=== PATIENT | female | born 1935 | race Caucasian/White ===

== ENCOUNTER → 2017-09-20 | Outpatient (CLI) | payer OTHER | LOC: FIMAGING 14:10 | PROVIDERS: ATTEND Internal Medicine | DX: Z12.31 Encounter for screening mammogram for malignant neoplasm of breast (principal); Z85.3 Personal history of malignant neoplasm of breast | CPT/HCPCS: G0202-52 ==

== ENCOUNTER 2017-12-12 10:39 | Inpatient (IN) | payer OTHER ==
--- NOTE | 2017-12-12 07:10 | PDHPUP ---
History & Physical Update H&P update statement: This history and physical update is based on an assessment of the patient which was completed after admission or registration (within 24 hours), but prior to the surgery/procedure. H&P update: H&P reviewed & patient examined, no change in patient's condition since H&P completed
[~2017-12-12 10:39] MED LIST: ROPIVACAINE 0.2% 80 MG, EPINEPHrine 0.2 MG, KETOROLAC TROMETHAMINE 30 MG in SYRINGE 0 ML IU ONE; TRANEXAMIC ACID 3,000 MG in NS (SYRINGE) 50 ML IRR ONE; TRANEXAMIC ACID 3,000 MG/50 ML BAG IRR ONE
[2017-12-12] MEDS ORDERED: DEXAMETHASONE 4 MG/ML VIAL IVP ONE (10:52)
[2017-12-12] MEDS ORDERED: FAMOTIDINE 20 MG TAB PO ONE (10:52)
[2017-12-12] MEDS ORDERED: ceFAZolin 2 GM/SWFI 2 GM/20 ML SYR IVP ONE (10:52)
--- NOTE | 2017-12-12 12:30 | PDANEPAE ---
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 - Pulmonary History Hx COPD: No Hx Asthma/Reactive Airway Disease: No Hx Recent Upper Respiratory Infection: No Hx Oxygen in Use at Home: No Hx Sleep Apnea: No Sleep Apnea Screening Result - Last Documented: Negative - Neurologic History Hx Cerebrovascular Accident: No Hx Seizures: No Hx Dementia: No Neurologic History Comment: SYNCOPAL EPISODE, MRI, BRAIN SURGERY, BLOOD VESSELS INTERTWINED 1991 - Endocrine History Hx Diabetes: No Endocrine History Comment: HYPOTHYROID - Renal History Hx Renal Disorders: No - Liver History Hx Hepatic Disorders: No - Neurological & Psychiatric Hx Hx Neurological and Psychiatric Disorders: No - Cancer History Hx Cancer: Yes Cancer History Comment: BREAST LUMPECTOMY - Congenital Disorder History Hx Congenital Disorders: No - GI History Hx Gastrointestinal Disorders: No - Other Health History Other Health History: OSTEOARTHRITIS - Chronic Pain History Chronic Pain: Yes (RT KNEE) - Surgical History Prior Surgeries: ROLANDO CATARACT 08/2017. LT TOTAL KNEE 10/2015. R MASTECTOMY 2014. L KNEE CYST EXCISION 2011. BRAIN SURGERY 1991. R LUMPECTOMY 1985. TONSILLECTOMY ANE Review of Systems Review of Systems: - Exercise capacity METS (RN): 6 METS ANE Patient History - Allergies Allergies/Adverse Reactions: No Known Allergies Allergy (Unverified 11/14/17 16:20) - Home Medications Home Medications: Herbals/Supplements -Info Only 1 ea PO DAILY 11/02/15 [Last Taken 11/13/15 15:00 ] Aspirin [Aspirin 81mg (*)] 81 mg PO DAILY 11/14/17 [Last Taken 11/28/17] DULoxetine [Cymbalta] 20 mg PO Q2D@09 11/14/17 [Last Taken 12/11/17 14:00] Denosumab [Prolia] 60 mg SC .[id number] 11/14/17 [Last Taken 11/11/17] - NPO status NPO Since - Liquids (Date): 12/12/17 NPO Since - Liquids (Time): 10:00 NPO Since - Solids (Date): 12/11/17 NPO Since - Solids (Time): 21:00 - Anes Hx Anes Hx: no prior problems - Smoking Hx Smoking Status: Never smoked ANE Labs/Vital Signs - Vital Signs Blood Pressure: 126/69 Heart Rate: 62 Respiratory Rate: 17 O2 Sat (%): 98 Height: 165.1 cm Weight: 54.431 kg ANE Physical Exam - Airway Neck exam: FROM Mallampati Score: Class 1 Mouth exam: normal dental/mouth exam - Pulmonary Pulmonary: no respiratory distress, no rales or rhonchi, clear to auscultation - Cardiovascular Cardiovascular: regular rate and rhythym - ASA Status ASA Status: II ANE Anesthesia Plan Anesthesia Plan: spinal Regional Anesthesia: adductor canal FNB
[2017-12-12] MEDS ORDERED: PROPOFOL/EMULSION 500 MG/50 ML BOTTLE IV ONE (12:35)
[2017-12-12] MEDS ORDERED: DEXAMETHASONE 4 MG/ML VIAL ONE (13:01)
[2017-12-12] MEDS ORDERED: BISACODYL 10 MG SUPP PR PRN (13:06)
[2017-12-12] MEDS ORDERED: MAGNESIUM HYDROXIDE 30 ML UDCUP PO PRN (13:06)
[2017-12-12] MEDS ORDERED: TEMAZEPAM 15 MG CAP PO PRN (13:06)
[2017-12-12] MEDS ORDERED: ONDANSETRON DISINTEGRATING 4 MG TAB PO PRN (13:06)
[2017-12-12] MEDS ORDERED: PROMETHAZINE HCL 25 MG/ML INJ IVP PRN ×2 (13:06→13:51)
[2017-12-12] MEDS ORDERED: METOCLOPRAMIDE 10 MG/2 ML VIAL IVP PRN (13:06)
[2017-12-12] MEDS ORDERED: ONDANSETRON 4 MG/2 ML VIAL IVP PRN ×2 (13:06→13:51)
[2017-12-12] MEDS ORDERED: diphenhydrAMINE 25 MG CAP PO PRN (13:06)
[2017-12-12] MEDS ORDERED: PROMETHAZINE HCL 25 MG SUPPR PR PRN (13:06)
[2017-12-12] MEDS ORDERED: LACTULOSE 20 GM/30 ML UDCUP PO PRN (13:06)
[2017-12-12] MEDS ORDERED: DIPHENOXYLATE/ATROPINE LOMOTIL 1 TAB PO PRN (13:06)
[2017-12-12] MEDS ORDERED: fentaNYL 100 MCG/2 ML INJ ONE (13:19)
[2017-12-12] MEDS ORDERED: LIDOCAINE 2% JELLY 5 ML TUBE ONE (13:24)
[2017-12-12] MEDS ORDERED: ONDANSETRON 4 MG/2 ML VIAL ONE (13:25)
[2017-12-12] MEDS ORDERED: LR 1,000 ML IV SCH (13:30)
[2017-12-12] MEDS ORDERED: NALOXONE HCL 0.4 MG/ML INJ IVP PRN (13:51)
[2017-12-12] MEDS ORDERED: fentaNYL 100 MCG/2 ML INJ IVP PRN (13:51)
[2017-12-12] MEDS ORDERED: ENALAPRILAT DIHYDRATE 1.25 MG/ML VIAL IVP PRN (13:51)
[2017-12-12] MEDS ORDERED: LR 500 ML IV PRN (13:51)
[2017-12-12] MEDS ORDERED: ceFAZolin 2 GM/DEXTROSE 100 ML IV SCH (14:00)
--- NOTE | 2017-12-12 14:20 | POSTOPPROG ---
Post Op Note Date of Operation: 12/12/17 Surgeon: Abilio Avendaño Insurance Healthcare Representative: Carissa Avendaño PAc Anesthesiologist: Ashia Anesthesia: LMA, Spinal Pre-op Diagnosis: R knee DJD Post-op Diagnosis: same Indication: pain Procedure: R TKA Findings: DJD knee Inf/Abcess present in the surg proc area at time of surgery?: No EBL: 50-100
[2017-12-12] MEDS ORDERED: ceFAZolin 2 GM/SWFI 2 GM/20 ML SYR IVP SCH (14:30)
--- NOTE | 2017-12-12 14:37 | POSTANESTH ---
Post Anesthetic Evaluation Cardiovascular Status: Normal, Stable, Similar to Pre-Op Cond Respiratory Status: Normal, Stable, Similar to Pre-op Cond. Level of Consciousness/Mental Status: Can Participate in Eval, Mildly Sleepy, Arousable Pain Control: Adequate, Prn Tx Ordered Nausea/Vomiting Control: Adequate, Prn Tx Ordered Complications Possibly Related to Anesthesia: None Noted (Adductor canal nerve block performed in PACU.)
[2017-12-12] MEDS: SENNOSIDES/DOCUSATE SODIUM TAB PO SCH (20:54)
[2017-12-12] MEDS: FAMOTIDINE 20 MG TAB PO SCH (20:54)
[2017-12-12] MEDS: ASPIRIN 81 MG CHEWABLE TAB PO SCH (20:54)
[2017-12-12] MEDS: ceFAZolin 2 GM/SWFI 2 GM/20 ML SYR IVP SCH (20:57)
--- NOTE | 2017-12-13 00:42 | GOP ---
[f rep st] OPERATIVE REPORT DATE OF OPERATION: 12/12/2017 SURGEON: Everardo Avendaño MD IN HOME SALES CONSULTANT: Carissa Avendaño PA-C ANESTHESIA: Spinal. PREOPERATIVE DIAGNOSIS: Right knee osteoarthritis. POSTOPERATIVE DIAGNOSIS: Right knee osteoarthritis. PROCEDURE PERFORMED: Right total knee arthroplasty. FINDINGS: ESTIMATED BLOOD LOSS: 30 cc. INDICATIONS: This is an 82-year-old female with severe and progressive pain and deformity of the rig ht knee unresponsive to conservative care. Risks and benefits of the surgical intervention were expl ained in detail. DESCRIPTION OF PROCEDURE: The patient was brought to the operative room and placed on the table in t he supine position. Spinal anesthesia was induced without difficulty. A pneumatic tourniquet was ap plied about the right proximal thigh, and the leg was prepped and draped in a sterile fashion. The l eg bae was applied. After exsanguination by elevation the tourniquet was inflated to 250 mm of me rcury. Incision was made anterior medial from the tibial tuberosity to a point 2 cm proximal to the superior pole of the patella. Medial parapatellar arthrotomy was carried out from the superior pole of the p atella and posteriorly in line with the fibers of the Type II VMO. The medial collateral ligament wa s elevated and the infrapatellar fat pad was resected. The patella was everted and the articular surface was excised. A 32 mm patellar button was placed. T he distal femoral guide hole was drilled and the 6-degree alignment zaida was placed. A 10 mm distal f emoral cut was made without difficulty. Attention was turned to the tibia and a standard 6 mm cut based on the medial tibial condyle was perf ormed. The tibial articular surface was excised without difficulty. Attention was turned back to the femur and a size 5 Triathlon femoral cutting block was positioned. Anterior, posterior, and chamfer cuts were made, followed by the intercondylar box cut. The knee was extended and the remnants of the medial and lateral meniscus were excised. The posterio r capsule was injected with ropivacaine, epinephrine and Toradol. A size 5 Triathlon Tritanium tibia l tray was positioned. Trial reduction was then carried out. There was excellent range of motion, a lignment, and stability using the 5 x 9 mm polyethylene. All trials were then removed. The joint was thoroughly irrigated and carefully dried. Two packages of cement and 2 grams of vancomycin were mixed in the vacuum mixer and placed on the fixation surface s of all surfaces of the components. The components were implanted and all excess cement was thoroug hly removed. The permanent 5 x 9 mm polyethylene x3 was placed without difficulty. The tourniquet was deflated and all bleeders were coagulated. The wound was thoroughly irrigated and closed using interrupted sutures of 2-0 Vicryl for the joint capsule. The subcu was closed with 3-0 Vicryl and the skin with 4-0 Monocryl. Dermabond and Steri-Strips were applied followed by a compre ssive dressing. The patient was then moved from the operating room to the recovery room in good cond ition, having tolerated the procedure well. PATHOLOGY: Severe, lateral patellofemoral osteoarthritis. /[id number]/MODL
[2017-12-13] MEDS: LEVOTHYROXINE 50 MCG TAB PO SCH (05:31)
[2017-12-13] MEDS: ceFAZolin 2 GM/SWFI 2 GM/20 ML SYR IVP SCH (05:32)
[2017-12-13] MEDS: FAMOTIDINE 20 MG TAB PO SCH ×2 (09:06→20:42)
[2017-12-13] MEDS: ANASTROZOLE 1 MG TAB PO SCH (09:06)
[2017-12-13] MEDS: ASPIRIN 81 MG CHEWABLE TAB PO SCH ×2 (09:06→20:42)
[2017-12-13] MEDS: SENNOSIDES/DOCUSATE SODIUM TAB PO SCH ×2 (09:07→20:42)
--- NOTE | 2017-12-13 15:58 | SOAPPROG ---
SOAP Progress Note Assessment/Plan: Assessment: Makenna is doing well POD 1 s/p R TKA pain is well controlled on oral pain meds Anemia: level expected initially postop VTE ppx: recommend ASA 81 mg BID foot drop: impaired dorsiflexion, should improve with more time from surgery. most likely due to periarticular injection. continue to monitor closely and ambulate carefully d/c planning: d/c to home tomorrow pending improvement in foot drop and patient' s comfort level Plan: 12/13/17 15:56 Subjective: Makenna is doing well today, denies SOB, chest pain and N/V. Objective: Vital Signs Temp Pulse Resp BP Pulse Ox 36.8 C 68 16 99/50 L 95 12/13/17 15:38 12/13/17 15:38 12/13/17 15:38 12/13/17 15:38 12/13/17 15:38 Laboratory Results 12/13/17 05:01 12/13/17 05:01 12/12/17 12/13/17 12/14/17 05:59 05:59 05:59 Intake Total 2177 650 Output Total 1650 900 Balance 519 -250 RLE: incision dressing is clean and dry, NVI, +pf/df ICD10 Worksheet Patient Problems: Problems Problem Status Onset S/P total knee arthroplasty Acute
[2017-12-13] MEDS: HYDROCODONE/APAP 5/325 TAB PO PRN ×2 (17:34→20:42)
[2017-12-13] MEDS: CYCLOBENZAPRINE 10 MG TAB PO PRN (22:03)
[2017-12-14] MEDS: HYDROCODONE/APAP 5/325 TAB PO PRN (01:10)
[2017-12-14] MEDS: LEVOTHYROXINE 50 MCG TAB PO SCH (06:04)
[2017-12-14] MEDS: SENNOSIDES/DOCUSATE SODIUM TAB PO SCH ×2 (09:42→20:56)
[2017-12-14] MEDS: FAMOTIDINE 20 MG TAB PO SCH ×2 (09:42→20:56)
[2017-12-14] MEDS: DULoxetine 20 MG CAP PO SCH (09:42)
[2017-12-14] MEDS: ASPIRIN 81 MG CHEWABLE TAB PO SCH ×2 (09:43→20:56)
[2017-12-14] MEDS: ANASTROZOLE 1 MG TAB PO SCH (09:43)
--- NOTE | 2017-12-14 12:59 | CPEKG ---
Heart Rate: 63 RR Interval: 952 P-R Interval: 208 QRSD Interval: 110 QT Interval: 412 QTC Interval: 422 P [place]: 76 QRS [place]: -62 T Wave [place]: 69 EKG Severity - ABNORMAL ECG - EKG Impression: SINUS RHYTHM EKG Impression: LEFT ANTERIOR FASCICULAR BLOCK Electronically Signed By: Arthur Sneed 14-Dec-2017 17:03:05
[2017-12-14] MEDS: CYCLOBENZAPRINE 10 MG TAB PO PRN (14:56)
[2017-12-14] MEDS ORDERED: ACETAMINOPHEN 325 MG TAB PO PRN (15:11)
--- NOTE | 2017-12-14 15:20 | SOAPPROG ---
SOAP Progress Note Assessment/Plan: Assessment: Makenna is doing well POD 2 s/p R TKA 1) pain: patient states she had severe pain last evening, received IV morphine and Bellevue within minutes of eachother. Patient has not had another narcotic pain med since early this morning. Patient states nausea to oxycodone, so Bellevue was ordered. Patient states drowsiness and has slept most of the day. Ordered tramadol and tylenol as additional options as patient is reluctant to take Bellevue due to mental side effects. 2) Anemia: level expected initially postop 3) VTE ppx: recommend ASA 81 mg BID 4) foot drop: resolved 5) d/c planning: patient has had a more difficult time recovering than anticipated. Concern about patient's ability to participate in PT. Placed case management order. Believe we should consider SNF for patient. 6): lightheadedness: patient had episode of lightheadedness, diaphoresis and nurses and district administrative assistant describe episode of difficulty to arouse while patient was trying to go to the bathroom. Recommend resuming IV fluids, rest, encouraged patient to work with PT as tolerated. STAT team was called, EKG obtained. Patient was resting comfortably in bed before I left. Plan: 12/13/17 15:56 12/14/17 15:12 Subjective: Makenna is resting comfortably in bed, describes drowsiness after receiving restoril, Bellevue and IV morphine last evening. Has not worked with PT. Patient states she had pain while working with OT. Patient is worried about taking Bellevue due to sedating side effects. Objective: Vital Signs Temp Pulse Resp BP Pulse Ox 36.9 C 80 14 102/64 96 12/14/17 08:00 12/14/17 09:40 12/14/17 08:00 12/14/17 09:40 12/14/17 09:40 Laboratory Results 12/14/17 04:50 12/13/17 05:01 12/13/17 12/14/17 12/15/17 05:59 05:59 05:59 Intake Total 2174 1300 Output Total 1655 900 300 Balance 519 400 -300 RLE: incision dressing is clean and dry, ecchymosis as expected POD 1, swelling and effusion as expected POD 1. + plantar flexion ICD10 Worksheet Patient Problems: Problems Problem Status Onset S/P total knee arthroplasty Acute
--- NOTE | 2017-12-14 15:39 | ASMTCMCOM ---
CM Note CM Note Notes: Pt post op day 2 right TKA, has been limited working w therapies by pain and lightheadedness. CM order today to assess for SNF placement. Spoke w pt and Leroy about SNF, pt verbalizes understanding she may need SNF and is agreeable. Provided [facility] SNF list, pt and will talk to friends/family and let CM know choice(s) tomorrow. CM to follow. Date Signed: 12/14/2017 03:39 PM Electronically Signed By:FABIOLA Norris
[2017-12-14] MEDS: traMADol 50 MG TAB PO PRN (16:13)
[2017-12-15] MEDS: LEVOTHYROXINE 50 MCG TAB PO SCH (05:00)
[2017-12-15] MEDS: traMADol 50 MG TAB PO PRN ×2 (05:00→16:06)
[2017-12-15] MEDS: ANASTROZOLE 1 MG TAB PO SCH (09:04)
[2017-12-15] MEDS: SENNOSIDES/DOCUSATE SODIUM TAB PO SCH ×2 (09:04→22:21)
[2017-12-15] MEDS: FAMOTIDINE 20 MG TAB PO SCH ×2 (09:04→22:22)
[2017-12-15] MEDS: ASPIRIN 81 MG CHEWABLE TAB PO SCH ×2 (09:04→22:22)
[2017-12-15] MEDS: HYDROCODONE/APAP 5/325 TAB PO PRN (09:07)
[2017-12-15] MEDS: POLYETHYLENE GLYCOL 3350 17 GM PKT PO PRN (09:08)
[2017-12-15 10:53] LABS: PLATELET COUNT 214 10^3/uL (150-400)
--- NOTE | 2017-12-15 11:12 | GCON ---
[f rep st] CONSULTATION INTERNAL MEDICINE CONSULTATION DATE OF CONSULTATION: 12/15/2017 REASON FOR CONSULTATION: Medical opinion regarding syncopal event. HISTORY: The patient is an 82-year-old female who is postoperative day #3 status post right total kn ee arthroplasty. A stat team was called yesterday as the patient had full loss of consciousness whil e on the toilet. She had a pulse throughout the event, but she did briefly stop breathing. She resp onded well to a deep sternal rub. The patient complains of severe pain all day yesterday. The day prior to that she was doing well, bu t when the Marcaine anesthesia wore off, pain became severe. She got a dose of IV morphine, which pr therese much knocked her out, and she slept most of the day. She has almost no memory of any events fro m yesterday, including her episode of loss of consciousness on the commode. Today, she is doing much better with improved pain control. She denies any chest pain or shortness of breath, and she has be en up already with Physical Therapy this morning. Yesterday afternoon she became hypotensive with an y attempt to get her out of bed, but her orthostatic vital signs this morning were within normal limi ts. PAST MEDICAL HISTORY: 1. Hypothyroidism. 2. Breast cancer, status post mastectomy. 3. Pulmonary hypertension. 4. Ascending aortic dilation. 5. Sciatica. PAST SURGICAL HISTORY: Hysterectomy. MEDICATIONS: Please see computer record for full detailed list. ALLERGIES: No known drug allergies. SOCIAL HISTORY: No smoking. No alcohol. She lives with her . REVIEW OF SYSTEMS: Complete review of systems obtained. Review of systems negative regarding consti tutional, HEENT, GI, pulmonary, vascular, , hematology, skin, musculoskeletal, endocrine, psych exc ept for positives as in HPI. FAMILY HISTORY: Positive for stroke and early coronary artery disease. PHYSICAL EXAMINATION: GENERAL: Well-developed, well-nourished female, in no acute distress. VITAL SIGNS: Temperature is 36.8, pulse 73, blood pressure 109/43, saturating 96% on 1 L. EYE EXAMINATION : Normal conjunctivae. Pupils equal, reactive to light. ENT: Normal ears and nose. Hearing intac t. Normal teeth. Oropharynx moist. NECK: Trachea midline. No thyromegaly. CHEST: Normal respir atory effort. Lungs clear to auscultation bilaterally. CARDIOVASCULAR: Regular rhythm. No murmur. No extremity edema. ABDOMEN: Soft, nontender. No hepatosplenomegaly. SKIN: Warm, dry, intact. No rash. MUSCULOSKELETAL: No cyanosis or clubbing. Strength 5/5 upper and lower extremities. JANINE RO: Cranial nerves intact. Normal sensation to light touch. PSYCHIATRIC: Alert and oriented x3. Normal mood and affect. Normal judgment and insight. Normal memory. LABORATORY DATA: Hematocrit 31.4, that was as of yesterday morning. Sodium 135, potassium 4.1, chlo ride 105, bicarb 25, BUN 10, creatinine 0.5, glucose 99. EKG reviewed by me. My personal interpretation, normal sinus rhythm. No ST or T-wave changes. ASSESSMENT AND PLAN: 1. Syncope. I suspect this was a vagal event due to pain and being on the commode. She does, [facility], have a history of pulmonary hypertension and has not had a recent echocardiogram. Will check an echo. Watch her while she is here on telemetry and check a troponin x1. Orthostatic vital signs rep ortedly were positive yesterday but within normal limits this morning. 2. Right total knee arthroplasty. She is on aspirin for deep vein thrombosis prophylaxis, which mari l be deferred to Dr. Avendaño. 3. Breast cancer, status post mastectomy. Continue Arimidex. 4. Hypocalcemia. I will check an albumin. I suspect her albumin is a little low and the calcium wi ll correct to normal range. 5. Hypothyroidism. She recently had a TSH as an outpatient which was with within normal limits. Thank you very much for this consultation. Hospitalist Medicine will continue to follow benji yao her hospitalization. /[id number]/MODL
--- NOTE | 2017-12-15 11:49 | ASMTCMCOM ---
CM Note CM Note Notes: Chart reviewed for discharge planning purposes. Patient i 82 year old female s/p knee surgery. Therapies recommending SNF rehab. I met with the patient and her and they currently reside at . They would consider [facility] as well. Referrals via allscripts. CM to follow. Date Signed: 12/15/2017 11:49 AM Electronically Signed By:Deanne Moscoso RN
[2017-12-16 00:29] VITALS: TEMP 98.2
[2017-12-16] MEDS: LEVOTHYROXINE 50 MCG TAB PO SCH (05:28)
[2017-12-16] MEDS: traMADol 50 MG TAB PO PRN (05:33)
[2017-12-16 07:42] VITALS: O2SAT 96
[2017-12-16] MEDS: DULoxetine 20 MG CAP PO SCH (08:08)
[2017-12-16] MEDS: SENNOSIDES/DOCUSATE SODIUM TAB PO SCH (08:08)
[2017-12-16] MEDS: ASPIRIN 81 MG CHEWABLE TAB PO SCH (08:08)
[2017-12-16] MEDS: FAMOTIDINE 20 MG TAB PO SCH (08:08)
[2017-12-16] MEDS: ANASTROZOLE 1 MG TAB PO SCH (08:09)
--- NOTE | 2017-12-16 09:02 | HOSPPROG ---
Hospitalist Progress Note Assessment/Plan: * Syncope - suspect vasovagal -ECHO result d/w Dr Burrows - unremarkable - formal read to come -remainder of the work-up unremarkable -medically stable to discharge to SNF today * Post-operative anemia -stable and within expectation of procedure * Right KYLE -DVT prophylaxis and pain control per Dr. Avendaño * Breast cancer -continue Arimidex * Hypocalcemia - corrects for low albumin -no need for replacement Subjective: Feels great. No CP/SOB. Feels ready for rehab. Objective: Vital Signs Temp Pulse Resp BP Pulse Ox 36.8 C 72 20 126/51 H 96 12/16/17 07:42 12/16/17 07:42 12/16/17 07:42 12/16/17 07:42 12/16/17 07:42 Laboratory Results 12/15/17 10:35 12/15/17 04:34 12/15/17 12/16/17 12/17/17 05:59 05:59 05:59 Intake Total 1755 1100 Output Total 950 650 Balance 805 450 d/w Dr. Burrows - ECHO is okay, formal read to come tele reviewed - NSR - Physical Exam Constitutional: no apparent distress, appears nourished, not in pain Cardiovascular: regular rate and rhythym, no murmur, rub, or gallop Respiratory: no respiratory distress, no rales or rhonchi, clear to auscultation Gastrointestinal: normoactive bowel sounds, soft, non-tender abdomen, no palpable masses Skin: no rashes or abrasions, no fluctuance, no induration Neurologic: AAOx3, sensation intact bilaterally Psychiatric: interacting appropriately, not anxious, not encephalopathic, thought process linear ICD10 Worksheet Patient Problems: Problems Problem Status Onset S/P total knee arthroplasty Acute
--- NOTE | 2017-12-16 09:42 | ECHO ---
[email or web address] [address] [address] Main: [phone] Fax: Transthoracic Echocardiogram Name: EDMUND CELIS MR#: [id number] Study Date: 12/15/2017 Study Time: 01:38 PM Date of : 1935 Age: 82 year(s) Height: 165.1 cm (65 in.) Weight: 54.43 kg (120 lb.) BSA: 1.59 m2 Gender: Female Examination: Echo Indication: Cardiac: syncope Image Quality: Contrast: Requested by: Barb Sanchez BP: 103 mmHg/51 mmHg Heart Rate: Rhythm: Indication: Cardiac: syncope Procedure Staff Pelletizer Tender: Daysi Cotton RDCS Reading Physician: Kirill Galvez MD Requesting Provider: Conclusions: Normal global systolic LV function. The ejection fraction is estimated to be 65-70 %. Normal diastolic LV function. The left atrium is mildly dilated. Trivial to mild mitral regurgitation. Trivial aortic valve regurgitation. Mild calcification seen on the NCC of the aortic valve.. Moderate tricuspid regurgitation is present. The pulmonary artery pressure is normal. Borderline dilated ascending aorta.. Measurements: Chambers Valvular Assessment AV/MV Valvular Assessment TV/PV Normal Normal Normal Name Value Range Name Value Range Name Value Range Ao Rylee (MM): 3.3 cm (2.2 cm-3.7 MV E Vmax: 0.62 m/s ( - ) TR Vmax: 2.95 mm/s ( - ) cm) MV A Vmax: 0.56 m/s ( - ) TR PGmax: 35 mmHg ( - ) IVSd (2D): 0.7 cm (0.6 cm-1.1 MV E/A: 1.11 ( - ) syst. PAP: 40 mmHg ( - ) cm) LVDd (2D): 4.2 cm (3.9 cm-5.3 cm) LVDs (2D): 2.0 cm (2.1 cm-4 cm) LVPWd (2D): 0.8 cm ( - ) LVEF (MOD4): 79 % (>=55 %) EF Range: 65-70 % Continued Measurements: Chambers Valvular Assessment AV/MV Valvular Assessment TV/PV Patient: EDMUND CELIS Study Date: 12/15/2017 Page 1 of 2 01:38 PM Name Value Name Value Name Value LADs: 3.2 cm MV E' Septal: 0.08 m/s CVP (est.): 5 mmHg LADs Lon.1 cm MV E/E' Septal: 7.40 LA Area: 20.1 cm2 MV E/E' Lateral: 7.90 Additional Vessels Name Value Ao Ascendin.9 cm Findings: Left Ventricle: Normal size left ventricle. No LV hypertrophy. Normal global systolic LV function. The ejection fraction is estimated to be 65-70 %. No regional wall motion abnormality. Normal diastolic LV function. Right Ventricle: Normal size right ventricle. There is a moderator band noted in the right ventricle. Left Atrium: The left atrium is mildly dilated. Right Atrium: The right atrium is borderline dilated. Mitral Valve: The mitral valve is normal in appearance and function. Trivial to mild mitral regurgitation. Aortic Valve: The aortic valve is tri-leaflet. Trivial aortic valve regurgitation. Mild calcification seen on the NCC of the aortic valve.. Tricuspid Valve: The tricuspid valve is normal in appearance and function. Moderate tricuspid regurgitation is present. The pulmonary artery pressure is normal. Pulmonic Valve: The pulmonic valve is normal in appearance and function. Aorta: Borderline dilated ascending aorta.. The aorta is normal. Pericardium: No pericardial effusion. There is pericardial fat. (No Signature Object) Patient: EDMUND CELIS Study Date: 12/15/2017 Page 2 of 2 01:38 PM [id number]
[2017-12-16] MEDS: POLYETHYLENE GLYCOL 3350 17 GM PKT PO PRN (09:55)
--- NOTE | 2017-12-16 10:32 | PDIAF ---
- Diagnosis Diagnosis: s/p R TKA Code Status: Full Code - Medication Management Discharge Medications: Medications to Continue on Transfer Herbals/Supplements -Info Only 1 ea PO DAILY 11/02/15 [Last Taken 11/13/15 15:00 ] Anastrozole [Arimidex 1 mg (*)] 1 mg PO DAILY #0 tab 11/18/15 [Last Taken 14:00] Levothyroxine [Synthroid 50 mcg (*)] 50 mcg PO DAILY06 #0 tab 11/18/15 [Last Taken 12/12/17 08:00] DULoxetine [Cymbalta] 20 mg PO Q2D@09 11/14/17 [Last Taken 12/11/17 14:00] Denosumab [Prolia] 60 mg SC .[id number] 11/14/17 [Last Taken 11/11/17] Acetaminophen [Tylenol 325mg (*)] 650 mg PO Q6HRS PRN tab 12/16/17 [Last Taken Unknown] Aspirin [Aspirin 81mg (*)] 81 mg PO BID tab.chew 12/16/17 [Last Taken Unknown] Hydrocodone/APAP 5/325 [[place] 5/325 (*)] 1 - 2 tab PO Q6HRS PRN tab 12/16/17 [ Last Taken Unknown] Ondansetron Odt [Zofran Odt 4 mg (*)] 4 mg PO Q4HRS PRN tab 12/16/17 [Last Taken Unknown] Sennosides/Docusate Sodium [Senokot-S] 1 - 2 tab PO BID tab 12/16/17 [Last Taken Unknown] celeCOXIB [Celebrex (*)] 200 mg PO DAILY cap 12/16/17 [Last Taken Unknown] traMADol [Ultram 50 mg (*)] 50 - 100 mg PO Q6HRS PRN tab 12/16/17 [Last Taken Unknown] Discharge Medications: Refer to the Discharge Home Medication list for PRN reason. - Orders Isolation Type: Chemotherapy Isolation Diet Recommendation: no restrictions on diet Diet Texture: Regular Texture Diet Additional: Joint Protocol-Knee Replacement. Follow up with Dr. Puckett office as scheduled. After surgery instructions: Take Aspirin 81mg by mouth twice daily for 4 weeks (helps to prevent blood clots). Wear thigh high ANTONIO hose on both legs during the daytime for 2 weeks (helps to prevent blood clots and decrease swelling in the surgical leg). It is ok to remove ANTONIO hose at night time to give your legs a break. It is common for swelling and bruising to occur in the entire surgical leg even extending to the foot, if concerned call Dr. Wolfe office [phone]. Elevate the surgical leg with the ankle above the hip several times a day. Ideally anytime you are resting throughout the day. Attempt to keep the knee straight while elevating by placing pillows under the ankle instead of the knee to elevate. This may be painful, so please do as much as tolerated. This will help you achieve full knee extension. Use a walker for 7-14 days. Start outpatient physical therapy in 7-10 days. Wear an kyara wrap on the knee for 3-4 days after surgery, then it is no longer needed. Do exercises in the book 2-3 times a day. Ice at least 3-5 times a day for 30 minutes each time, if not more often. We also recommend using the ice machine before falling asleep to help with pain. If you have further questions that are not addressed here, please look at the information packet handed to you at the preop appointment. Most will be answered on the FAQs, after surgery instructions and incision care pages. *IF YOU HAVE A LIFE THREATENING EMERGENCY , CALL 911. FOR NON-LIFE THREATENING ISSUES, PLEASE CALL DR. PUCKETT OFFICE FIRST. A PHYSICIAN IS BLUEPRINT ENGINEER 14/05. Incision/Dressing Care: You may shower tomorrow, you do not have to cover your incision dressing as it should be waterproof. Please do not immerse in water, but water running down it in a shower should be ok. Keep the incision (feliciano) dressing clean and dry. If the incision dressing gets soiled or wet underneath, change dressing to the dressing given to you by the hospital. (feliciano dressing will turn black if drainage occurs). Remove incision dressing (feliciano one) two weeks after surgery. Leave steri strips alone. They will fall off on their own. Do not have anyone else remove the incision dressing prior to the stated recommendation (2 weeks after surgery). If there are incision concerns, contact Dr. Wolfe office. ( Carissa or Dr. Avendaño may remove earlier if concerns arise). If incision site (feliciano dressing) has drainage, call Dr. Wolfe office, . Carissa and Dr. Avendaño may ask you to come into the office for further evaluation - Follow Up Care Current Providers and Referrals: Shaniqua Tucker MD [Primary Care Provider] - Carissa Avendaño PA [Physician Sales Support Advisor] -
--- NOTE | 2017-12-16 11:21 | ASMTCMCOM ---
CM Note CM Note Notes: Met with patient and to review discharge plan of care. No beds available at . They are agreeable to [facility]. Referral sent and patient accepted. Medically cleared for discharge final orders to [facility] via allscripts. Confirmed receipt. Transport at 3 pm. Family and RN informed. RN will call report. CM available should needs arise. Date Signed: 12/16/2017 11:20 AM Electronically Signed By:Deanne Moscoso RN
--- NOTE | 2017-12-16 11:22 | ASMTLACE ---
AMYE Length of stay for Answers: 3 days current admission Acuity / Level of Answers: Yes Care: Did the patient have an inpatient admission? Comorbidities - select Answers: Opioid dependence all that apply / Chronic pain # of Emergency department Answers: 0 visits in the last 6 months Score: 10 Date Signed: 12/16/2017 11:22 AM Electronically Signed By:Deanne Moscoso RN
[2017-12-16 11:28] VITALS: BP 111/44; PULSE 70; RESP 17
--- NOTE | 2017-12-16 15:46 | ASMTCMCOM ---
CM Note CM Note Notes: Facility reports no orders in allscripts. Orders, PT evals and home meds faxed, Confirmed receipt. CM available if needed. Date Signed: 12/16/2017 03:46 PM Electronically Signed By:Deanne Moscoso RN
--- NOTE | 2017-12-16 15:49 | ASDISCHSUM ---
Discharge Information Plan Status:SNF Medically Cleared to Leave:12/15/2017 Discharge Date:12/16/2017 03:01 PM CM D/C Disposition:Long Term Facility ADT D/C Disposition:Long Term Facility Projected Discharge Date:12/17/2017 11:00 AM Transportation at D/C:Wheelchair Van Discharge Delay Reason: Follow-Up Date:12/17/2017 11:00 AM Discharge Slot: Final Diagnosis: Placement Information Referral Type:*Longterm/SNF Referral ID:[id number] Provider Name:Lyudmila Persaud Address 1:[address] Phone Number: Address 2: Fax Number: City:[place] Selection Factors: State:[place] Patient Contact Information Contact Name:SONG Relationship: Address:[address] Work Phone: [facility] Phone: [facility]/Zip Code:[place] [address] Email: Financial Information Financial Class:Medicare Primary Plan Desc:MEDICARE INPATIENT Primary Plan Number:[id number] Secondary Plan Desc:[facility] Secondary Plan Number:[id number] Assessment Information LACE LACE Length of stay for Answers: 3 days current admission Acuity / Level of Answers: Yes Care: Did the patient have an inpatient admission? Comorbidities - select Answers: Opioid dependence all that apply / Chronic pain # of Emergency department Answers: 0 visits in the last 6 months Score: 10 Date Signed: 12/16/2017 11:22 AM Electronically Signed By:Deanne Moscoso RN [facility] CM Progress Note CM Note CM Note Notes: Pt post op day 2 right TKA, has been limited working w therapies by pain and lightheadedness. CM order today to assess for SNF placement. Spoke w pt and Leroy about SNF, pt verbalizes understanding she may need SNF and is agreeable. Provided [facility] list, pt and will talk to friends/family and let CM know choice(s) tomorrow. CM to follow. Date Signed: 12/14/2017 03:39 PM Electronically Signed By:FABIOLA Norris [facility] CM Progress Note CM Note CM Note Notes: Chart reviewed for discharge planning purposes. Patient i 82 year old female s/p knee surgery. Therapies recommending SNF rehab. I met with the patient and her and they currently reside at . They would consider [facility] as well. Referrals via allGlobaliaripts. CM to follow. Date Signed: 12/15/2017 11:49 AM Electronically Signed By:Deanne Moscoso RN [facility] CM Progress Note CM Note CM Note Notes: Met with patient and to review discharge plan of care. No beds available at . They are agreeable to [facility]. Referral sent and patient accepted. Medically cleared for discharge final orders to [facility] via allscripts. Confirmed receipt. Transport at 3 pm. Family and RN informed. RN will call report. CM available should needs arise. Date Signed: 12/16/2017 11:20 AM Electronically Signed By:Deanne Moscoso RN Case Management Discharge Plan Note Case Management Discharge Discharge Order Complete? Answers: Yes Patient to Obtain Answers: Other Notes: [facility] Medications Transportation Arranged Answers: Other Notes: [facility] wheelchair v an EMTALA Complete Answers: No Faxed Final Orders Answers: Yes Agency/Facility Transfer Answers: Yes Report Printed & Faxed to Receiving Agency Family Notified Answers: Yes Date Signed: 12/16/2017 11:25 AM Electronically Signed By:Deanne Moscoso RN [facility] CM Progress Note CM Note CM Note Notes: Facility reports no orders in allscripts. Orders, PT evals and home meds faxed, Confirmed receipt. CM available if needed. Date Signed: 12/16/2017 03:46 PM Electronically Signed By:Deanne Moscoso RN Intervention Information Intervention Type:*Incorrect Registration Date of Service:12/12/2017 04:22 PM Patient Type:Inpatient Staff Member:ABEBA Barros, Leonor Hours: Discipline: Severity: Comment: Intervention Type:*MCGOWAN-Signed Date of Service:12/13/2017 10:26 AM Patient Type:Observation Staff Member:Kalyani Shafer Hours: Discipline: Severity: Comment: Intervention Type:*IM-Signed Date of Service:12/16/2017 11:26 AM Patient Type:Inpatient Staff Member:ABEBA Moscoso Margaret Hours: Discipline: Severity: Comment:
--- NOTE | 2017-12-18 11:54 | GDS ---
[f rep st] DISCHARGE SUMMARY ADMITTING DIAGNOSIS: Right knee osteoarthritis. DISCHARGE DIAGNOSIS: Right knee osteoarthritis. PROCEDURE: Right total knee arthroplasty. VTE PROPHYLAXIS: Recommend aspirin daily. BRIEF DESCRIPTION OF HOSPITAL STAY: Patient was admitted for an elective joint arthroplasty. The pa gracie tolerated the procedure well and has passed physical therapy. The patient was given appropriat e antibiotic prophylaxis and venous thromboembolism prophylaxis. The patient's pain was well control led on oral pain medication, patient was holding down food, and had urinated. Decision was made to d ischarge the patient. The patient was given post-operative prescriptions pre-operatively. PLAN: To follow up with Dr. Avendaño at [facility] for Orthopedics in 2 to 3 weeks. /[id number]/MODL
== END 2017-12-16 15:01 | DRG 470 ==
LOC: F3N 10:39 → INTOOBSV 10:39 → F3N 15:56 → OBSVTOIN 12-13 15:51
PROVIDERS: ADMIT Orthopaedic Surgery; ATTEND Orthopaedic Surgery
PROC: 0SRC0J9 Replacement of Right Knee Joint with Synthetic Substitute, Cemented, Open Approach (ICD-10-PCS; principal; 2017-12-13)
DX: M17.11 Unilateral primary osteoarthritis, right knee (principal); R55 Syncope and collapse; E83.51 Hypocalcemia; I27.20 Pulmonary hypertension, unspecified; I77.819 Aortic ectasia, unspecified site; I45.10 Unspecified right bundle-branch block; Z96.652 Presence of left artificial knee joint; Z85.3 Personal history of malignant neoplasm of breast
CPT/HCPCS: 97116-GP; 97162-GP; 97166-GO; 97530-GO; 97530-GP; 97535-GO; G8978-GP-CI; G8978-GP-CJ; G8979-GP-CI; G8980-GP-CI; G8987-GO-CI; G8988-GO-CI; J0171; J0690; J1100; J1885; J2270; J2405; J2704; J2795; J3010

== ENCOUNTER → 2018-02-08 | Outpatient (CLI) | payer OTHER | LOC: FIMAGING 16:21 | PROVIDERS: ATTEND Internal Medicine | DX: R22.41 Localized swelling, mass and lump, right lower limb (principal) ==

== ENCOUNTER → 2018-02-11 | Outpatient (CLI) | payer OTHER | LOC: FIMAGING 16:35 | PROVIDERS: ATTEND Internal Medicine | DX: I72.4 Aneurysm of artery of lower extremity (principal) ==

== ENCOUNTER → 2018-02-15 | Outpatient (CLI) | payer OTHER | LOC: FIMAGING 10:38 | PROVIDERS: ATTEND Internal Medicine | DX: I82.4Z1 Acute embolism and thrombosis of unspecified deep veins of right distal lower extremity (principal) ==

== ENCOUNTER 2018-06-20 12:40 | Emergency (ER) | payer OTHER ==
[2018-06-20] MEDS ORDERED: NS 1,000 ML IV ONE (13:00)
--- NOTE | 2018-06-20 13:07 | EDPHY ---
H & P Stated Complaint: word finding difficulty Time Seen by Provider: 06/20/18 12:51 HPI/ROS: CHIEF COMPLAINT: Stroke-like symptoms HISTORY OF PRESENT ILLNESS: Patient is an 82-year-old female who comes to the emergency department with stroke-like symptoms that have now resolved. She woke up at 8:30 a.m. and did not notice any problem at 1st but around 9 o'clock she tried to read and noticed that she could not see some of the words trauma that they appeared blank. She then about half an hour later tried to e-mail her son but could not think of the correct words to use. Her states that she could only think a very simple sentences. Neither of them noticed any difficulty with speaking or thinking of the correct words to say. No slurred speech. No focal weakness numbness or paralysis. She denies blurry vision, double vision or spots. No headache. No recent fevers or trauma. 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 She also has a history of breast cancer that is been in remission for 15 years. Severity: Resolved Modifying factors: Reading REVIEW OF SYSTEMS: Constitutional: denies: chills, fever, recent illness, recent injury EENTM: denies: blurred vision, double vision, nose congestion Respiratory: denies: cough, shortness of breath Cardiac: denies: chest pain, irregular heart rate, lightheadedness, palpitations Gastrointestinal/Abdominal: denies: abdominal pain, diarrhea, nausea, vomiting, blood streaked stools Genitourinary: denies: dysuria, frequency, hematuria, pain Musculoskeletal: denies: joint pain, muscle pain Skin: denies: lesions, rash, jaundice, bruising Neurological: See HPI denies: headache, numbness, paresthesia, tingling, dizziness, weakness Hematologic/Lymphatic: denies: blood clots, easy bleeding, easy bruising Immunologic/allergic: denies: HIV/AIDS, transplant EXAM: GENERAL: Well-appearing, well-nourished and in no acute distress. HEAD: Atraumatic, normocephalic. EYES: Pupils equal round and reactive to light, extraocular movements intact, sclera anicteric, conjunctiva are normal. ENT: TMs normal, nares patent, oropharynx clear without exudates. Moist mucous membranes. NECK: Normal range of motion, supple without lymphadenopathy or JVD. LUNGS: Breath sounds clear to auscultation bilaterally and equal. No wheezes rales or rhonchi. HEART: Regular rate and rhythm without murmurs, rubs or gallops. ABDOMEN: Soft, nontender, normoactive bowel sounds. No guarding, no rebound. No masses appreciated. BACK: No CVA tenderness, no spinal tenderness, step-offs or deformities EXTREMITIES: Normal range of motion, no pitting or edema. No clubbing or cyanosis. NEUROLOGICAL: Cranial nerves II through XII grossly intact. Normal speech, normal gait. 5/5 strength, normal movement in all extremities, normal sensation , normal reflexes NIH stroke score 0, ambulates without difficulty. PSYCH: Normal mood, normal affect. SKIN: Warm, dry, normal turgor, no visible rashes or lesions. Source: Patient, Family Exam Limitations: No limitations - Personal History Current Tetanus/Diphtheria Vaccine: Unsure Current Tetanus Diphtheria and Acellular Pertussis (TDAP): Unsure Tetanus Vaccine Date: 2003 - Medical/Surgical History Hx Asthma: No Hx Chronic Respiratory Disease: No Hx Diabetes: No Hx Cardiac Disease: No Hx Renal Disease: No Hx Cirrhosis: No Hx Alcoholism: No Hx HIV/AIDS: No Hx Splenectomy or Spleen Trauma: No Other PMH: Breast CA x 2,RT mastectomy,brain surgery, - Family History Significant Family History: No pertinent family hx - Social History Smoking Status: Never smoked Alcohol Use: None Drug Use: None Constitutional: Initial Vital Signs Temperature (C) 36.6 C 06/20/18 12:46 Heart Rate 61 06/20/18 12:46 Respiratory Rate 16 06/20/18 12:46 Blood Pressure 136/72 H 06/20/18 12:46 O2 Sat (%) 97 06/20/18 12:46 O2 Delivery Mode Room Air Allergies/Adverse Reactions: No Known Allergies Allergy (Unverified 06/20/18 12:44) Home Medications: Medication Instructions Recorded Herbals/Supplements -Info Only 1 ea PO DAILY 11/02/15 Anastrozole [Arimidex 1 mg (*)] 1 mg PO DAILY #0 tab 11/18/15 Levothyroxine [Synthroid 50 mcg 50 mcg PO DAILY06 #0 tab 11/18/15 (*)] DULoxetine [Cymbalta] 20 mg PO Q2D@09 11/14/17 Denosumab [Prolia] 60 mg SC .[id number] 11/14/17 Acetaminophen [Tylenol 325mg (*)] 650 mg PO Q6HRS PRN tab 12/16/17 Aspirin [Aspirin 81mg (*)] 81 mg PO BID tab.chew 12/16/17 Medical Decision Making - Diagnostics EKG Interpretation: An EKG obtained and was read and documented in trace view. Please see trace view for full reading and report. Sinus rhythm, no acute ischemic changes, similar to previous Imaging Results: Imaging Impressions Head CT 06/20/18 13:00 Impression: 1. No acute intracranial process. 2. Stable encephalomalacic changes in the left parietotemporal lobes. Findings and recommendations discussed with FOX WINTERS at 1327 hour, 2017. Brain MRI 06/20/18 13:02 Impression: 1. No evidence of acute cortical ischemia on diffusion-weighted imaging. 2. Mild periventricular white matter disease, unchanged. Stable cystic encephalomalacia left temporal lobe. 3. 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 Correlation with formal visual jackson may be of benefit in determining whether this mass has any effect on visual acuity. Results called to Dr. Fox Winters at 2:50 p.m. Imaging: Discussed imaging studies w/ freight caller Radiologist ED Course/Re-evaluation: 3:00 p.m. Patient's test results are reassuring. She remains asymptomatic. I discussed the case with Dr. Florian Tobin who will follow up in the next 2-3 days. He does recommend initiation of aspirin. Patient and refused admission. Differential Diagnosis: Partial list of the Differential diagnosis considered include but were not limited to; TIA, CVA, hemorrhage and although unlikely based on the history and physical exam, I also considered infection, retinal detachment, medication reaction. I discussed these differential diagnoses and the plan with the patient as well as the usual and expected course. The patient understands that the diagnosis is provisional and that in medicine we are not always correct and that further workup is often warranted. Usual and customary warnings were given. All of the patient's questions were answered. The patient was instructed to return to the emergency department should the symptoms at all worsen or return, otherwise to followup with the physician as we discussed. - Data Points Laboratory Results: Laboratory Results 06/20/18 13:06 06/20/18 13:06 06/20/18 06/20/18 06/20/18 13:12 13:06 13:06 WBC 5.85 10^3/uL 10^3/uL (3.80-9.50) RBC 5.17 10^6/uL 10^6/uL (4.18-5.33) Hgb 14.1 g/dL g/dL (12.6-16.3) Hct 43.0 % % (38.0-47.0) MCV 83.2 fL fL (81.5-99.8) MCH 27.3 pg L pg (27.9-34.1) MCHC 32.8 g/dL g/dL (32.4-36.7) RDW 14.8 % % (11.5-15.2) Plt Count 217 10^3/uL 10^3/uL (150-400) MPV 10.5 fL fL (8.7-11.7) Neut % (Auto) 62.9 % % (39.3-74.2) Lymph % (Auto) 25.3 % % (15.0-45.0) [place] % (Auto) 8.7 % % (4.5-13.0) Eos % (Auto) 1.9 % % (0.6-7.6) Baso % (Auto) 1.0 % % (0.3-1.7) Nucleat RBC Rel Count 0.0 % % (0.0-0.2) Absolute Neuts (auto) 3.68 10^3/uL 10^3/uL (1.70-6.50) Absolute Lymphs (auto) 1.48 10^3/uL 10^3/uL (1.00-3.00) Absolute Monos (auto) 0.51 10^3/uL 10^3/uL (0.30-0.80) Absolute Eos (auto) 0.11 10^3/uL 10^3/uL (0.03-0.40) Absolute Basos (auto) 0.06 10^3/uL 10^3/uL (0.02-0.10) Absolute Nucleated RBC 0.00 10^3/uL 10^3/uL (0-0.01) Immature Gran % 0.2 % % (0.0-1.1) Immature Gran # 0.01 10^3/uL 10^3/uL (0.00-0.10) Sodium 137 mEq/L mEq/L (135-145) Potassium 4.6 mEq/L mEq/L (3.3-5.0) Chloride 104 mEq/L mEq/L (97-110) Carbon Dioxide 26 mEq/l mEq/l (22-31) Anion Gap 7 mEq/L L mEq/L (8-16) BUN 18 mg/dL mg/dL (7-23) Creatinine 0.8 mg/dL mg/dL (0.6-1.0) Estimated GFR > 60 Glucose 66 mg/dL L mg/dL (70-100) Calcium 9.2 mg/dL mg/dL (8.5-10.4) POC Troponin I 0.01 ng/mL ng/mL (0.00-0.08) Medications Given: Discontinued Medications Sodium Chloride (Ns) 1,000 mls @ 0 mls/hr IV ONCE ONE; Wide Open PRN Reason: Protocol Stop: 06/20/18 13:01 Last Admin: 06/20/18 13:29 Dose: 1,000 mls Point of Care Test Results: Chemistry 06/20/18 13:12 POC Troponin I 0.01 ng/mL ng/mL (0.00-0.08) Departure - Departure Disposition: Home, Routine, Self-Care Clinical Impression: Transient cerebral ischemia Qualifiers: Transient cerebral ischemia type: unspecified Qualified Code(s): G45.9 - Transient cerebral ischemic attack, unspecified Condition: Fair Instructions: Transient Ischemic Attack (ED) Additional Instructions: Began taking baby aspirin daily. Referrals: Shaniqua Tucker MD [Primary Care Provider] - As per Instructions Florian Tobin MD [Medical Doctor] - As per Instructions
[2018-06-20 13:15] LABS: PLATELET COUNT 217 10^3/uL (150-400)
--- NOTE | 2018-06-20 13:20 | CPEKG ---
Test Reason : OPEN Blood Pressure : / mmHG Vent. Rate : 055 BPM Atrial Rate : 055 BPM P-R Int : 224 ms QRS Dur : 110 ms QT Int : 445 ms P-R-T Axes : 062 -71 045 degrees QTc Int : 426 ms Sinus rhythm Prolonged OK interval Left anterior fascicular block Confirmed by Daniel Winters ([id number]) on 06/20/2018 1:19:44 PM Referred By: Confirmed By:Daniel Winters
[2018-06-20 15:13] VITALS: BP 123/66
== END 2018-06-20 15:15 | disposition home or self-care (01) ==
DX: G45.9 Transient cerebral ischemic attack, unspecified (principal)
CPT/HCPCS: 84484-PO

== ENCOUNTER → 2018-06-26 | Outpatient (CLI) | payer OTHER ==
--- NOTE | 2018-06-26 14:40 | CPEEG ---
ELECTROENCEPHALOGRAM DATE OF STUDY: 06/26/2018 INTERPRETATION: This EEG is abnormal due to the following reasons: 1. There are potentially epileptogenic abnormalities over the left temporal head region. 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 2. There is a moderate degree of focal slowing and asymmetry over the left temporal head region consistent with the patient's known previous neurosurgical procedure in this region. The findings of this EEG were directly communicated to the patient's primary neurologic provider, CURTIS Rowland. REPORT: This EEG contains 10 Hz alpha activity to the posterior head regions. The primary feature of this recording was the presence of left temporal spikes, sharp waves and left temporal intermittent rhythmic delta activity (TIRDA). These were present at baseline and continued with photic stimulation. In addition, there is a moderate degree of focal slowing and asymmetry of the left temporal head region composed of intermittent polymorphic theta and delta frequency activity. The patient became drowsy and fell asleep during the study. During drowsiness and sleep, there was continued activation of left temporal spikes, sharp waves, and TIRDA. No seizures were recorded during the awake and sleep EEG recordings. The findings of this EEG were directly communicated to the patient's primary neurologic provider, CURTIS Rowland. /[id number]/MODL MTDD
== END ==
LOC: FCPNEURO 12:38
PROVIDERS: ATTEND Physician Assistant Medical
DX: G40.909 Epilepsy, unspecified, not intractable, without status epilepticus (principal); Z98.890 Other specified postprocedural states

== ENCOUNTER → 2018-10-28 | Outpatient (CLI) | payer OTHER | LOC: FIMAGING 11:06 | PROVIDERS: ATTEND Internal Medicine | DX: Z12.31 Encounter for screening mammogram for malignant neoplasm of breast (principal); Z90.11 Acquired absence of right breast and nipple ==

== ENCOUNTER → 2018-11-07 | Outpatient (CLI) | payer OTHER | LOC: FIMAGING 13:04 | PROVIDERS: ATTEND Internal Medicine Hematology & Oncology | DX: Z13.820 Encounter for screening for osteoporosis (principal); M81.0 Age-related osteoporosis without current pathological fracture ==